=== PATIENT | male | born 1955 | race Caucasian/White ===

== ENCOUNTER 2018-12-12 14:39 | Emergency (ER) | payer MEDICARE ==
[2018-12-12 15:18] VITALS: BP 123/75
[2018-12-12] MEDS ORDERED: Tetan/Diph/Pertus SYR(Tdap)* 0.5 ML SYR(BOOSTRIX) use SYR contains LATEX IM ONE (15:48)
--- NOTE | 2018-12-12 15:51 | UC ---
Lower Extremity/Ankle HPI - HPI Summary HPI Summary: Patient is a 63-year-old male here with a left leg injury. Patient slipped off his truck 5 days ago and scraped his left leg. Patient's had bruising and pain in his left leg since then. Patient was using anti-inflammatory medicine until 2 days ago. This morning, patient was in his left leg was more swollen than it had been. Patient has no surrounding erythema, fever, history of blood clots, recent immobilization, hormone use. Patient has been ambulatory since the incident. Medications reviewed - History of Current Complaint Chief Complaint: UCLowerExtremity Stated Complaint: LEG PAIN BOTH LEGS Time Seen by Provider: 12/12/18 15:37 Hx Obtained From: Patient Onset/Duration: Sudden Onset Severity Initially: Moderate Severity Currently: Moderate Pain Intensity: 0 - Allergies/Home Medications Allergies/Adverse Reactions: Allergies Allergy/AdvReac Type Severity Reaction Status Date / Time No Known Allergies Allergy Verified 12/12/18 15:13 Home Medications: Home Medications NK [No Home Medications Reported] 12/12/18 [History Confirmed 12/12/18] PMH/Surg Hx/FS Hx/Imm Hx Previously Healthy: Yes - Surgical History Surgical History: Yes Surgery Procedure, Year, and Place: appendectomy - Family History Known Family History: Positive: Non-Contributory - Social History Alcohol Use: Occasionally Substance Use Type: None Smoking Status (MU): Never Smoked Tobacco Review of Systems All Other Systems Reviewed And Are Negative: Yes Constitutional: Negative: Fever, Chills Skin: Positive: Bruising. Negative: Rash Respiratory: Negative: Shortness Of Breath Cardiovascular: Negative: Palpitations, Chest Pain Physical Exam - Summary Physical Exam Summary: Vital Signs Reviewed: Yes A+Ox3, no distress Eyes: Conjunctiva Clear ENT: Hearing grossly normal neck: supple Respiratory: Positive: No respiratory distress, No accessory muscle use Cardiovascular: skin color reflect adequate perfusion Musculoskeletal Exam: Left leg with abrasion over the medial calf. Ecchymosis from the abrasion proximal to the mid thigh. No bony tenderness. No erythema or warmth. No venous cords. No pain with dorsiflexion of the foot. Pulses 2+ Neurological: Positive: Alert, ambulatory without difficulty Triage Information Reviewed: Yes Vital Signs: Initial Vital Signs Temp 97.8 F 12/12/18 15:14 Pulse 63 12/12/18 15:14 Resp 18 12/12/18 15:14 BP 123/75 12/12/18 15:14 Pulse Ox 97 12/12/18 15:14 Lower Extremity Course/Dx - Course Course Of Treatment: Patient is here 5 days after falling off his truck. Patient has no bony tenderness and is ambulating on his leg. Patient's evidence of fracture on physical exam and does not need a x-ray for that. Patient's leg does not look infected which was her main concern. Patient was given a strategy to decrease swelling and control his pain home. Patient's symptoms entirely are not consistent with a DVT as he does not have any risk factors for that. - Differential Dx/Diagnosis Differential Diagnosis/HQI/PQRI: Cellulitis, DVT, Infection, Sprain, Strain, Other - abrasion Provider Diagnosis: Leg abrasion Discharge - Sign-Out/Discharge Documenting (check all that apply): Patient Departure All imaging exams completed and their final reports reviewed: No Studies - Discharge Plan Condition: Stable Disposition: HOME Patient Education Materials: Abrasion (ED) Referrals: No Primary Care Phys,NOPCP [Primary Care Provider] - Additional Instructions: Please rest, elevate, ice your leg at the end of the day. Please continue your anti-inflammatory medicine you have at home Please return if he have worsening swelling, redness, pus draining from the wound, fever, any other concerning symptoms - Billing Disposition and Condition Condition: STABLE Disposition: Home
== END 2018-12-12 16:05 | disposition home or self-care (01) ==
LOC: UCEAST 14:39
DX: S80.812A Abrasion, left lower leg, initial encounter (principal); V48.4XXA Person boarding or alighting a car injured in noncollision transport accident, initial encounter; Y92.9 Unspecified place or not applicable
CPT/HCPCS: 90471; 90715; 99201; G0463